=== PATIENT | female | born 1955 | race Caucasian/White ===

== ENCOUNTER 2022-01-31 13:22 | Outpatient (CLI) | payer OTHER | END 2022-01-31 13:35 | disposition home or self-care (01) | LOC: RAD 13:22 | PROVIDERS: ATTEND Orthopaedic Surgery | DX: M25.561 Pain in right knee (principal); M25.562 Pain in left knee; M25.551 Pain in right hip; M25.552 Pain in left hip ==

== ENCOUNTER 2022-12-31 05:50 | Day surgery (SDC) | payer OTHER ==
[~2022-12-31] VITALS: Ht 160 cm; Wt 72.6 kg
[~2022-12-31 05:50] MED LIST: [UNRECOGNIZED DRUG - OTHER] PO
== END 2022-12-31 11:15 | disposition home or self-care (01) ==
LOC: CIR.AMB 05:50
PROVIDERS: ATTEND Orthopaedic Surgery Hand Surgery
DX: R22.32 Localized swelling, mass and lump, left upper limb (principal); M67.432 Ganglion, left wrist; E78.5 Hyperlipidemia, unspecified; Z20.822 Contact with and (suspected) exposure to COVID-19